=== PATIENT | female | born 1990 | race Caucasian/White ===

== ENCOUNTER → 2017-08-20 | Outpatient (CLI) | payer MEDICAID | LOC: FIMAGING 11:33 | PROVIDERS: ATTEND Family Medicine Sports Medicine | DX: M53.3 Sacrococcygeal disorders, not elsewhere classified (principal) ==

== ENCOUNTER → 2018-05-06 | Outpatient (CLI) | payer MEDICAID | LOC: FIMAGING 16:33 | PROVIDERS: ATTEND Family Medicine | DX: M53.3 Sacrococcygeal disorders, not elsewhere classified (principal); S30.0XXA Contusion of lower back and pelvis, initial encounter; W16.812A Jumping or diving into other water striking water surface causing other injury, initial encounter ==

== ENCOUNTER → 2018-08-02 | Outpatient (CLI) | payer MEDICAID | LOC: FIMAGING 14:34 | PROVIDERS: ATTEND Family Medicine Sports Medicine | DX: M54.30 Sciatica, unspecified side (principal); M51.9 Unspecified thoracic, thoracolumbar and lumbosacral intervertebral disc disorder; Y93.39 Activity, other involving climbing, rappelling and jumping off ==

== ENCOUNTER 2018-08-21 18:42 | Emergency (ER) | payer MEDICAID ==
[2018-08-21 18:46] VITALS: BP 113/81
--- NOTE | 2018-08-21 19:12 | EDPHY ---
H & P Time Seen by Provider: 08/21/18 18:53 HPI/ROS: CHIEF COMPLAINT: Wasp sting right medial thigh HISTORY OF PRESENT ILLNESS: 28-year-old female states that 3 nights ago she was stung right medial thigh by a wasp. She notes continued erythema, comma comma warmth, itching to the area. At no point has she experienced respiratory complaints. No chest pain. No abdominal pain. No nausea no vomiting. REVIEW OF SYSTEMS: 10 systems reviewed and negative with the exception of the elements mentioned in the history of present illness PAST MEDICAL & SURGICAL HISTORY: No pertinent medical or surgical history SOCIAL HISTORY: Nonsmoker PHYSICAL EXAM (Prior to examination, patient consented to physical exam, hands were washed and my usual and customary physical exam procedures followed) 1) GENERAL: Well-developed, well-nourished, alert and oriented. Appears to be in no acute distress. 2) HEAD: Normocephalic, atraumatic 3) HEENT: Pupils equal, round, reactive to light bilaterally. Sclera anicteric. Nasopharynx, oropharynx, clear, no lesions. Moist Mucous membranes. 4) NECK: Full range of motion, no meningeal signs. 5) LUNGS: Clear auscultation bilaterally, no wheezes, no rhonchi, no retractions. 6) HEART: Regular rate and rhythm, no murmur, no heave, no gallop. 7) ABDOMEN: No guarding, no rebound, no focal tenderness, 8) MUSCULOSKELETAL: Right medial thigh erythema and warmth consistent with localized allergic reaction, not consistent with cellulitis. No induration. There is a central lesion. There is no lymphangitic streaking. Soft compartments. 9) BACK: No visual or palpable abnormality. 10) SKIN: No rash, no petechiae. 11) Psychiatric: Patient is oriented X 3, there is no agitation. DIFFERENTIAL DIAGNOSIS: In no particular include but limited to localized inflammatory reaction, anaphylaxis, cellulitis Smoking Status: Never smoked Constitutional: Initial Vital Signs Temperature (C) 36.4 C 08/21/18 18:42 Heart Rate 94 08/21/18 18:42 Respiratory Rate 16 08/21/18 18:42 Blood Pressure 113/81 H 08/21/18 18:42 O2 Sat (%) 96 10/20/18 18:42 Allergies/Adverse Reactions: No Known Allergies Allergy (Verified 05/22/18 09:43) Home Medications: Medication Instructions Recorded NK [No Known Home Meds] 05/22/18 MDM/Departure - [facility] ED Course/Re-evaluation: I think the patient's symptoms more likely represent localized inflammatory response to acute wasp sting and less than likely represent cellulitis or abscess. She has soft compartments. Doubt compartment syndrome. No evidence of systemic disease, no evidence of anaphylaxis. Recommended cool packs, H1 H2 blockers, usual and customary sting precautions and instructions provided. She feels comfortable being discharged. I saw this patient independently based on established practice protocols. Care of patient under supervision of supervising physician Dr Gutierrez . - Depart Disposition: Home, Routine, Self-Care Clinical Impression: Local reaction to bee sting Qualifiers: Encounter type: initial encounter Injury intent: undetermined intent Qualified Code(s): T63.444A - Toxic effect of venom of bees, undetermined, initial encounter Condition: Good Instructions: Insect Bite or Sting (ED) Additional Instructions: I recommend you apply cool compresses to the area several times per day. Do not apply direct ice to the area. I recommend Benadryl 25 mg every 6 hr by mouth and and Pepcid 20 mg twice daily, for the next 3 days. Referrals: Chidi Miranda MD [Primary Care Provider] - 08/23/18
== END 2018-08-21 19:21 | disposition home or self-care (01) ==
DX: T63.441A Toxic effect of venom of bees, accidental (unintentional), initial encounter (principal)

== ENCOUNTER → 2018-12-09 | Outpatient (CLI) | payer MEDICAID | LOC: FIMAGING 12:17 | PROVIDERS: ATTEND Family Medicine Sports Medicine | DX: M21.70 Unequal limb length (acquired), unspecified site (principal); M41.86 Other forms of scoliosis, lumbar region ==

== ENCOUNTER → 2019-03-10 | Outpatient (CLI) | payer MEDICAID | LOC: FIMAGING 09:10 | PROVIDERS: ATTEND Family Medicine Sports Medicine | DX: M41.25 Other idiopathic scoliosis, thoracolumbar region (principal); M21.821 Other specified acquired deformities of right upper arm; M54.40 Lumbago with sciatica, unspecified side ==

== ENCOUNTER 2019-03-17 22:34 | Emergency (ER) | payer MEDICAID ==
--- NOTE | 2019-03-17 22:55 | EDPHY ---
General Time Seen by Provider: 03/17/19 22:55 Narrative: CLINICAL IMPRESSION: Lower abdominal cramping, nausea and vomiting ASSESSMENT/PLAN: Patient is a 28-year-old female who presents to the emergency department with lower abdominal cramping, nausea and vomiting which occurred suddenly after taking misoprostol in preparation for IUD placement tomorrow. Patient is afebrile, she is uncomfortable appearing actively dry heaving however not toxic- appearing. Her abdomen was soft and nondistended, she had diffuse lower abdominal tenderness without rebound or guarding. Laboratory studies reassuring , no evidence of leukocytosis, significant metabolic abnormality or acute kidney injury. negative which rules out ectopic. Ultrasound revealed leiomyomatous uterus, largest measuring 2 cm in the lower uterine fundus. There were no suspicious adnexal masses or other acute pelvic findings ; no evidence of torsion or TOA. I suspect her sudden-onset nausea, vomiting and abdominal cramping were secondary to her taking 2 tablets of misoprostol as her symptoms occurred suddenly shortly after taking this medication. Patient was given IV fluids, Zofran and Toradol with improvement of her symptoms. On repeat exam she is much more comfortable appearing, her abdomen is soft with very mild diffuse lower abdominal tenderness and no evidence of surgical abdomen. She has an appointment with OBGYN tomorrow morning and understands the importance of follow-up. Conservative return precautions discussed. DIFFERENTIAL DX: Abdominal pain in a female including but not limited to ovarian cyst, pelvic inflammatory disease, ovarian torsion, urinary tract infection, and appendicitis. ED COURSE: 2325: Case discussed with Dr. Jnoes 2337: On repeat examination the patient is no longer actively vomiting, she reports that she is feeling better. Her pain has improved. Ultrasound is in the room and pending. 2341: Ultrasound results show leiomyomata is uterus, largest measuring 2 cm in the lower uterine fundus. There are no suspicious adnexal masses or acute pelvic findings. Normal flow to bilateral ovaries. CHIEF COMPLAINT: Abdominal cramping, nausea, vomiting HPI: Patient is a 28-year-old female with a history of presumed endometriosis, fibroids and remote ovarian cyst with rupture who presents to the emergency department with nausea, vomiting and abdominal cramping. Patient reports an extensive history of severe abdominal cramping secondary to her menses. Patient was seen and evaluated by her OBGYN, plan for IUD placement tomorrow. Patient was given misoprostol to take this evening in order to "open her cervix ". 15 min after taking this medication the patient experienced sudden onset severe nausea and persistent vomiting as well as abdominal cramping and diarrhea. She is generally feeling unwell. She does report very similar episodes in the past of abdominal cramping secondary to severe premenstrual syndrome, also with reported history of ovarian cyst rupture. She denies any fevers, chills, chest pain or shortness of breath. She denies any upper abdominal pain or hematemesis. She denies any vaginal bleeding or vaginal discharge. She does endorse recent diagnosis of bacterial vaginosis, completed transvaginal treatment. She denies any urinary symptoms to include dysuria, hematuria or increased frequency. She had 1 episode of diarrhea after taking this medication, denies any melena hematochezia. PMH: Endometriosis, fibroids, ovarian cyst with rupture Family History: Not contributory Social History: Marijuana use, occasional alcohol REVIEW OF SYSTEMS: All other systems negative Constitutional: No fever, no chills, appetite change. Eyes: No discharge, vision change ENT: No sore throat, congestion, ear pain. Cardiovascular: No chest pain, no palpitations. Respiratory: No cough, no shortness of breath. Gastrointestinal: Abdominal pain, nausea, vomiting, diarrhea Genitourinary: No hematuria, dysuria, flank pain. Musculoskeletal: No back pain, joint swelling, joint pain, myalgias. Skin: No rashes, color change. Neurological: No headache, dizziness, weakness. PHYSICAL EXAM: General Appearance: Well-developed, uncomfortable appearing however not toxic- appearing. She is actively dry heaving. HENT: Normocephalic, atraumatic. Bilateral external ears are normal. Bilateral tympanic membranes are normal with pearly knutson reflex. Nares are clear, mucosa is pink. Oropharynx is clear however mucosa is mildly dry, uvula is midline. The dentition is normal. Eyes: PERRLA, EOMI. Conjunctiva pink, no pallor or injection Neck: Supple, nontender, no lymphadenopathy, no midline pain, FROM. Respiratory: There are no retractions, lungs are clear to auscultation. Cardiac: Regular rate and rhythm, no murmurs or gallops. Gastrointestinal: Patient's abdomen is soft, tender in the generalized lower abdomen without rigidity, guarding or focal peritoneal findings. Bowel sounds are present. No masses or hernias appreciated. Negative Jeffers sign, negative Rovsing's and negative McBurney's point tenderness. Neurological: Alert and oriented x 3, CN 2-12 grossly intact, normal sensation and strength Skin: Warm, dry, no rashes, no nodules on palpation. Musculoskeletal: Extremities are symmetrical, full range of motion, no tenderness, deformity, swelling, or erythema. Psychiatric: Mood and affect are normal, there is no agitation. MEDICAL DECISION MAKING: Patient was seen independently. Secondary supervising physician at time of evaluation was Dr. Jones, he did not evaluate this patient. Diagnosis: Lower abdominal cramping, nausea and vomiting. Summary: CBC revealed no evidence of leukocytosis. Her vital signs were reviewed and there was no evidence of sepsis or serious bacterial illness. BMP revealed mild hypokalemia, no evidence of significant metabolic abnormality or acute kidney injury. negative, rules out ectopic. Ultrasound with leiomyomatous uterus, no other acute findings. I suspect her symptoms are secondary to taking misoprostol this evening in preparation for IUD placement tomorrow. There were no clinical findings to suggest appendicitis, cholecystitis, kidney stone, pancreatitis, perforated viscus, diverticulitis, hernia, AAA, mesenteric ischemia, or additional emergent intra-abdominal process. She had no urinary symptoms to suggest UTI or pyelonephritis. Patient had improvement of her symptoms in the emergency department on repeat exam there was no evidence of a surgical abdomen. No indication for CT imaging. Clinical lab tests: ordered / reviewed. Independent visualization of images, tracing, or specimens: Yes. Decision to obtain medical records or history from someone other than the patient: No Review / Summarize previous medical records: Yes Discussed patient with another provider: Yes, Dr. Jones Patient Progress: Stable, discharge. - History Smoking Status: Never smoked - Objective Vital Signs: Initial Vital Signs Temperature (C) 37.0 C 03/17/19 22:36 Heart Rate 100 03/17/19 22:36 Respiratory Rate 18 03/17/19 22:36 Blood Pressure 136/99 H 03/17/19 22:36 O2 Sat (%) 100 03/17/19 22:36 O2 Delivery Mode Room Air Allergies/Adverse Reactions: No Known Allergies Allergy (Verified 03/17/19 22:36) Home Medications: Medication Instructions Recorded NK [No Known Home Meds] 05/22/18 Laboratory Results: Laboratory Results 03/17/19 23:00 03/17/19 23:00 03/17/19 03/17/19 03/17/19 23:00 23:00 23:00 WBC 7.51 10^3/uL 10^3/uL (3.80-9.50) RBC 5.09 10^6/uL 10^6/uL (4.18-5.33) Hgb 15.0 g/dL g/dL (12.6-16.3) Hct 43.5 % % (38.0-47.0) MCV 85.5 fL fL (81.5-99.8) MCH 29.5 pg pg (27.9-34.1) MCHC 34.5 g/dL g/dL (32.4-36.7) RDW 12.4 % % (11.5-15.2) Plt Count 304 10^3/uL 10^3/uL (150-400) MPV 9.6 fL fL (8.7-11.7) Neut % (Auto) 46.3 % % (39.3-74.2) Lymph % (Auto) 42.1 % % (15.0-45.0) [place] % (Auto) 9.1 % % (4.5-13.0) Eos % (Auto) 1.5 % % (0.6-7.6) Baso % (Auto) 0.7 % % (0.3-1.7) Nucleat RBC Rel Count 0.0 % % (0.0-0.2) Absolute Neuts (auto) 3.49 10^3/uL 10^3/uL (1.70-6.50) Absolute Lymphs (auto) 3.16 10^3/uL H 10^3/uL (1.00-3.00) Absolute Monos (auto) 0.68 10^3/uL 10^3/uL (0.30-0.80) Absolute Eos (auto) 0.11 10^3/uL 10^3/uL (0.03-0.40) Absolute Basos (auto) 0.05 10^3/uL 10^3/uL (0.02-0.10) Absolute Nucleated RBC 0.00 10^3/uL 10^3/uL (0-0.01) Immature Gran % 0.3 % % (0.0-1.1) Immature Gran # 0.02 10^3/uL 10^3/uL (0.00-0.10) Sodium 136 mEq/L mEq/L (135-145) Potassium 3.2 mEq/L L mEq/L (3.5-5.2) Chloride 99 mEq/L mEq/L (97-110) Carbon Dioxide 24 mEq/l mEq/l (22-31) Anion Gap 13 mEq/L mEq/L (6-14) BUN 11 mg/dL mg/dL (7-23) Creatinine 0.6 mg/dL mg/dL (0.6-1.0) Estimated GFR > 60 Glucose 92 mg/dL mg/dL (70-100) Calcium 10.1 mg/dL mg/dL (8.5-10.4) Beta HCG, Qual NEGATIVE Medications Given: Discontinued Medications Hydrocodone Bitart/Acetaminophen (Leighton 5/325mg Prepack#6) 1 btl TAKEHOME EDNOW ONE Stop: 03/18/19 01:11 Last Admin: 03/18/19 02:10 Dose: 1 btl Sodium Chloride (Ns) 1,000 mls @ 0 mls/hr IV EDNOW ONE; Wide Open PRN Reason: Protocol Stop: 03/17/19 23:06 Last Admin: 03/17/19 23:06 Dose: 1,000 mls Ketorolac Tromethamine (Toradol) 30 mg IVP EDNOW ONE Stop: 03/18/19 00:32 Last Admin: 03/18/19 00:37 Dose: 30 mg Ondansetron HCl (Zofran) 4 mg IVP EDNOW ONE Stop: 03/17/19 23:06 Last Admin: 03/17/19 23:05 Dose: 4 mg Ondansetron HCl (Zofran Odt 4 Mg Prepack#2) 1 btl ABIOLA STAHL ONE Stop: 03/18/19 01:26 Last Admin: 03/18/19 02:09 Dose: 1 btl Departure - Departure Disposition: Home, Routine, Self-Care Clinical Impression: Abdominal cramping Nausea & vomiting Qualifiers: Vomiting type: unspecified Vomiting Intractability: non-intractable Qualified Code(s): R11.2 - Nausea with vomiting, unspecified Condition: Good Instructions: Hydrocodone/Acetaminophen (By mouth), Ondansetron (By mouth), Acute Nausea and Vomiting (ED), Acute Abdominal Pain (ED) Additional Instructions: DISCHARGE INSTRUCTIONS FROM YOUR PROVIDER Thank you for visiting our emergency department today. Please keep in mind that discharge from the emergency department does not mean that there is nothing wrong - it simply means that we have not identified an emergency condition that requires further evaluation or treatment in the hospital. Please follow-up with your OBGYN tomorrow as scheduled. Rest, push non-diuretic, non-caffeinated fluids, clear liquid diet, then a BRAT diet (bananas, rice, applesauce, toast), then slowly advance diet to normal. Attempt small frequent meals. Zofran as prescribed as needed for any recurrent nausea and/or vomiting. For pain control: You may take Tylenol, I recommend 500-1000 mg every 6-8 hours as needed. Take with food and a full glass of water. Stop taking if this is upsetting you stomach. Do not exceed 4000 mg in a 24 hr period. You may also take ibuprofen, recommend 400 mg every 6 hr. Take with food and a full glass of water. Stop taking if this upsets your stomach. Do not exceed 2400 mg in a 24 hr period. Do not take ibuprofen or other anti-inflammatories until it least 8 hr from discharge from the emergency department. You received a medication called Toradol. You have been prescribed Leighton which is a narcotic. Please do not drive or operate machinery while taking this medication as it may make you drowsy. It may also be habit forming. This medication can also cause constipation, recommend taking 100 mg of Colace twice daily while taking this medication. This medication also contains Tylenol, please do not take other Tylenol containing products with this medication. Return for increased or unmanageable pain, new site or character of pain, flank pain, groin pain, pelvic pain, development of fever, chills, recurrent vomiting , vomiting blood or coffee grounds, diarrhea, constipation, bloody stools, black tarry stools, burning or pain with urination, bloody urine, inability to urinate, decreased urine output or other signs of dehydration, dizziness, weakness, fainting, difficulty breathing or swallowing, chest pain, or for any other new, worsening or worrisome symptoms. People present with illnesses and injuries in different ways, and it is always possible that we have missed something. Again, thank you for choosing our emergency department. We hope that you feel better. Referrals: NONE *PRIMARY CARE P,. [Primary Care Provider] - As per Instructions (Please follow-up with your OBGYN tomorrow morning as we discussed.) Buzz Avila MD [[facility] [place] Primary Care Provider] - As per Instructions (Please establish care with a primary care provider if you have not done so already) Stand Alone Forms: School Excuse
[2019-03-17] MEDS ORDERED: ONDANSETRON 4 MG/2 ML VIAL ONE (23:02)
[2019-03-17] MEDS ORDERED: ONDANSETRON 4 MG/2 ML VIAL IVP ONE (23:05)
[2019-03-17] MEDS ORDERED: NS 1,000 ML IV ONE (23:05)
[2019-03-17 23:13] LABS: PLATELET COUNT 304 10^3/uL (150-400)
[2019-03-18] MEDS ORDERED: KETOROLAC 30 MG/1 ML SDV IVP ONE (00:31)
[2019-03-18] MEDS ORDERED: HYDROCOD/APAP 5/325 PREPACK#6 BTL TAKEHOME ONE (01:10)
[2019-03-18] MEDS ORDERED: ONDANSETRON 4MG PREPACK#2 BTL TAKEHOME ONE (01:25)
[2019-03-18 02:19] VITALS: BP 105/60
== END 2019-03-18 02:17 | disposition home or self-care (01) ==
DX: R10.9 Unspecified abdominal pain (principal); R11.2 Nausea with vomiting, unspecified; E86.9 Volume depletion, unspecified; D25.9 Leiomyoma of uterus, unspecified
CPT/HCPCS: 96374; J1885; J2405